=== PATIENT | male | born 1970 | race Caucasian/White ===

== ENCOUNTER 2023-07-12 00:10 | Day surgery (SDC) | payer OTHER, SELFPAY ==
[2023-07-01 13:44] VITALS: BMI 31.2
[2023-07-12 09:15] VITALS: BP 126/83; PULSE 80; RESP 18; TEMP 36.4; O2SAT 98
[2023-07-12] MEDS: LACTATED RINGERS 1,000 ML 150 ML IV CONT (09:24)
--- NOTE | 2023-07-12 09:48 | WPDANESEPPF ---
Anes - Initial Pre Proc Eval Procedure: Operation Date: 07/12/23 10:30 Proposed Procedures p Screening Colonoscopy - Tomas Daily MD Date/Time: 07/12/23 09:48 Surgeon: Tomas Daily MD Pre Op Diagnosis: neoplasm screening Patient Data Age: 53 Gender: M Height: 1.83 m Weight: 113.6 kg Last Vital Signs Temp 97.6 F 07/12/23 09:15 Pulse 80 07/12/23 09:15 Resp 18 07/12/23 09:15 BP 126/83 07/12/23 09:15 Pulse Ox 98 07/12/23 09:15 O2 Del Method Room Air 07/12/23 09:15 Allergies Allergy/AdvReac Type Severity Reaction Status Date / Time No Known Allergies Allergy Verified 07/12/23 09:13 Home Medications Medication Instructions Recorded Confirmed Type atorvastatin 40 mg tablet (Lipitor) 40 mg PO QHS #90 tabs 05/14/23 07/01/23 Rx varenicline 1 mg tablet (Chantix 1 mg PO BID #60 tabs 06/17/23 07/01/23 Rx Continuing Month Box) Patient hx anesthesia problems: none Family hx anesthesia problems: none Results Review: All pre-operative results and documents have been reviewed as part of the pre-operative evaluation. [facility] Past Medical History Medical History Dyslipidemia SAIMA on CPAP Surgical History Surgical History (Updated 05/14/23 @ 16:05 by Nicola Carlin MD) History of left inguinal hernia repair (~1993) History of right inguinal hernia repair (~2011) History of tonsillectomy Family History Family History Grandparent Carcinoma of colon Social History Social History Smoking packs per day: 1 Smoking cigarettes per day: 20.0 Years smoked: 35 Smoking pack-years: 35.00 Smoking status: Former smoker Tobacco type: cigarettes Alcohol intake: current Drinks per week: 8 Substance use: never Substance use type: does not use Do You Feel Safe in your Home?: Yes Lack of Transportation: No Lack of Food: Never True Current Housing: I Have Housing Concerned About Future Housing: No Difficulty Paying Gas/Electric Bills: No Difficulty Paying for Meds: No Currently Unemployed: No Education: Trade/Vocational Certificate Difficulty w/ Childcare or Family Care: No Living arrangements: with family Additional living arrangements comments: Occupation/Education: occupation Gender identity (if verbalized by the patient): Male Sexual Orientation (if Verbalized by the Patient): Straight or Heterosexual Spiritual care concerns: No Agree to blood products: Yes Anes - Eval Final PreProcedure Day of Procedure 07/12/23 09:48 Patient weight: normal Heart: regular rate and rhythm Lungs: clear to auscultation Airway: Mallampati scale class II Neurological: alert and oriented Last oral intake: >/= 8 hours Emergent: no Anesthetic plan: proceed Anesthesia type and monitoring: general GIVS and standard monitoring Results Review: All pre-operative results and documents have been reviewed as part of the pre-operative evaluation. Informed Consent: The patient's anesthetic plan and its attendant risks and benefits were discussed with the patient/family/POA. Questions were solicited and answers provided to the satisfaction of the patient/family/POA.
--- NOTE | 2023-07-12 10:17 | PM.HPGS ---
History of Present Illness History of Present Illness Consent: Risks, benefits, and alternatives have been discussed and questions answered. Patient agrees to proceed with procedure. Chief complaint: neoplasm screening Narrative: Elliot Castanon is a 53 year old male here for first screening colonoscopy Review of Systems Constitutional: Constitutional: Denies headache(s) and Denies weakness Eyes: Eyes: Denies blurry vision ENT: Reports Normal hearing present, Denies headache(s) and Denies neck pain Cardiovascular: Cardiovascular: Denies chest pain and Denies dyspnea Respiratory: Respiratory: Denies dyspnea Gastrointestinal: Gastrointestinal: Reports no additional gastrointestinal complaints Genitourinary: Genitourinary: Denies dysuria Musculoskeletal: Musculoskeletal: Denies neck pain Integumentary/Breasts: Skin/Breast: Denies dry skin Neurologic: Reports Normal hearing present, Denies headache(s) and Denies weakness Psychiatric: Psychiatric: Denies anxiety Endocrine: Endocrine: Denies change in body appearance Hematologic/Lymphatic: Hematologic/Lymphatic: Denies easy bleeding Allergic/Immunologic: Allergic/Immunologic: Denies urticaria [facility] Past Medical History Medical History (Updated 07/12/23 @ 10:17 by Tomas Daily MD) Colon cancer screening Dyslipidemia SAIMA on CPAP Surgical History Surgical History (Updated 05/14/23 @ 16:05 by Nicola Carlin MD) History of left inguinal hernia repair (~1993) History of right inguinal hernia repair (~2011) History of tonsillectomy Family History Family History Grandparent Carcinoma of colon Social History Social History Smoking packs per day: 1 Smoking cigarettes per day: 20.0 Years smoked: 35 Smoking pack-years: 35.00 Smoking status: Former smoker Tobacco type: cigarettes Alcohol intake: current Drinks per week: 8 Substance use: never Substance use type: does not use Do You Feel Safe in your Home?: Yes Lack of Transportation: No Lack of Food: Never True Current Housing: I Have Housing Concerned About Future Housing: No Difficulty Paying Gas/Electric Bills: No Difficulty Paying for Meds: No Currently Unemployed: No Education: Trade/Vocational Certificate Difficulty w/ Childcare or Family Care: No Living arrangements: with family Additional living arrangements comments: Occupation/Education: occupation Gender identity (if verbalized by the patient): Male Sexual Orientation (if Verbalized by the Patient): Straight or Heterosexual Spiritual care concerns: No Agree to blood products: Yes Meds Home Medications and Allergies Home Medications Medication Instructions Recorded Confirmed Type atorvastatin 40 mg tablet (Lipitor) 40 mg PO QHS #90 tabs 05/14/23 07/01/23 Rx varenicline 1 mg tablet (Chantix 1 mg PO BID #60 tabs 06/17/23 07/01/23 Rx Continuing Month Box) Allergies Allergy/AdvReac Type Severity Reaction Status Date / Time No Known Allergies Allergy Verified 07/12/23 09:13 Vital Signs Vital Signs - 24 hr 07/12/23 09:15 Temperature 97.6 F Pulse Rate 80 Respiratory Rate 18 Blood Pressure 126/83 Pulse Oximetry 98 Oxygen Delivery Room Air Exam Const: General: comfortable and no acute distress HENMT: Face/Nose/Sinus: Normal nares present Eyes: General: appearance normal, both eyes and all related structures Neck: Neck: no JVD Resp: Auscultation: clear to auscultation bilaterally Cardio: Rate: regular rate Rhythm: regular rhythm GI: Inspection: non-distended GI Palp: Yes Soft to palpation Skin: General skin exam: normal color Neuro: General: gait normal Speech: normal speech Extrem: General: normal to inspection Psych: Mental Status: mental status grossly normal Assessment and Plan Assessment and p
[2023-07-12 10:35] VITALS: BP 94/58; PULSE 69; RESP 17; O2SAT 97
[2023-07-12 10:45] VITALS: BP 118/80; PULSE 65; RESP 25; O2SAT 99
[2023-07-12 10:55] VITALS: BP 116/79; PULSE 60; RESP 29; O2SAT 100
== END 2023-07-12 11:01 | disposition home or self-care (01) ==
PROVIDERS: PCP Family Medicine; Visit Provider Internal Medicine Gastroenterology
PROC: 0DJD8ZZ Inspection of Lower Intestinal Tract, Via Natural or Artificial Opening Endoscopic (ICD-10-PCS; CPT 45378; principal; 2023-07-12 10:30)
DX: Z12.11 Encounter for screening for malignant neoplasm of colon (principal); K63.5 Polyp of colon; E78.5 Hyperlipidemia, unspecified; G47.33 Obstructive sleep apnea (adult) (pediatric); Z87.891 Personal history of nicotine dependence
CPT/HCPCS: 45385; 88305; J2704; J7120

== ENCOUNTER 2023-08-22 08:38 | Outpatient (CLI) | payer OTHER, SELFPAY ==
[2023-08-22 14:06] LABS: Alanine Aminotransferase 63 U/L (6-50); Albumin Level 4.6 g/dL (3.5-5.1); Alkaline Phosphatase 62 U/L (38-126); Anion Gap 8 mmol/L (4-12); Aspartate Amino Transferase 82 U/L (17-59); Bilirubin,Total 0.7 mg/dL (0.2-1.3); Blood Urea Nitrogen 13 mg/dL (9-20); Calcium 9.7 mg/dL (8.4-10.2); Carbon Dioxide 26 mmol/L (22-30); Chloride 105 mmol/L (98-107); Cholesterol 164 mg/dL (0-200); Estimated Glomerular Filt Rate > 60; Glucose 105 mg/dL (65-110); HDL Direct 40 mg/dL; Potassium 4.2 mmol/L (3.4-5.0); Sodium 139 mmol/L (137-145); Triglycerides 105 mg/dL (<150)
[2023-08-22 14:17] LABS: LDL Cholesterol Direct 101 mg/dL
[2023-08-22 18:19] LABS: Hemoglobin A1C 5.7 % (<5.7)
== END 2023-08-22 08:39 | disposition home or self-care (01) ==
LOC: ANHGOSHLAB 08:40
PROVIDERS: PCP Family Medicine; Visit Provider Family Medicine
DX: E78.5 Hyperlipidemia, unspecified (principal); I10 Essential (primary) hypertension; R20.0 Anesthesia of skin; R20.2 Paresthesia of skin; Z79.899 Other long term (current) drug therapy; R73.9 Hyperglycemia, unspecified
CPT/HCPCS: 36415; 80053; 80061; 83036

== ENCOUNTER 2024-04-17 14:50 | Emergency (ER) | payer OTHER, SELFPAY ==
[2024-04-17 15:04] VITALS: BP 120/87; PULSE 83; RESP 16; TEMP 36.5; O2SAT 99
--- NOTE | 2024-04-17 15:16 | ED.URI ---
HPI - URI/Sore Throat General Chief Complaint: Upper Respiratory Infection Stated Complaint: REYES,congestion Time Seen by Provider: 04/17/24 15:16 Source: patient, RN notes reviewed and old records reviewed Mode of arrival: ambulatory Limitations: no limitations History of Present Illness HPI Narrative: 54-year-old male presents to the [facility] with complaints sinus congestion for 2-3 days. States that he took 1 dose of sinus medication this morning. Denies fevers. Related Data Home Medications ?Medication ?Instructions ?Recorded ?Confirmed ?Last Taken ?Type levothyroxine 25 mcg tablet 25 mcg PO DAILY 03/10/24 04/17/24 Unknown History Allergies Allergy/AdvReac Type Severity Reaction Status Date / Time No Known Allergies Allergy Verified 04/17/24 17:39 Review of Systems Review of Systems: All systems reviewed & are unremarkable except as noted in HPI and below Constitutional: Constitutional: Reports no additional constitutional complaints ENT: Reports as per HPI Cardiovascular: Cardiovascular: Reports no additional cardiovascular complaints, Denies chest pain and Denies dyspnea Respiratory: Respiratory: Reports no additional respiratory complaints, Denies chest congestion, Denies cough and Denies dyspnea Gastrointestinal: Gastrointestinal: Reports no additional gastrointestinal complaints, Denies abdominal pain, Denies nausea and Denies vomiting Musculoskeletal: Musculoskeletal: Reports no additional musculoskeletal complaints Integumentary/Breasts: Skin/Breast: Reports system reviewed and no additional complaints, except as docu PMFSH Past Medical History Medical History Hypothyroidism SAIMA on CPAP Dyslipidemia Surgical History Surgical History History of tonsillectomy History of left inguinal hernia repair (~1993) History of right inguinal hernia repair (~2011) Family History Family History Grandparent Carcinoma of colon Social History Social History Smoking packs per day: 1 Smoking cigarettes per day: 20.0 Years smoked: 35 Smoking pack-years: 35.00 Smoking status: Former smoker (> 30 pack years quit 05/29) Tobacco type: cigarettes Smoking end date: 05/06/23 Alcohol intake: current Drinks per week: 8 Substance use: never Substance use type: does not use Do You Feel Safe in your Home?: Yes Lack of Transportation: No Lack of Food: Never True Current Housing: I Have Housing Concerned About Future Housing: No Difficulty Paying Gas/Electric Bills: No Difficulty Paying for Meds: No Currently Unemployed: No Education: Trade/Vocational Certificate Difficulty w/ Childcare or Family Care: No Living arrangements: with family Additional living arrangements comments: Occupation/Education: occupation Gender identity (if verbalized by the patient): Male Sexual Orientation (if Verbalized by the Patient): Straight or Heterosexual Spiritual care concerns: No Agree to blood products: Yes Comments At the time of my signature, I reviewed and agree with the nursing past medical, surgical, social, and family history. There is no relevant family history pertinent to the patient complaint. Exam Const: General: cooperative, healthy appearing, comfortable, no acute distress, well developed, alert and well nourished Nutritional Appearance: well nourished Orientation/consciousness: patient oriented x3 Limitations: no limitations HENMT: Head: normal to inspection Ears: hearing grossly normal bilaterally, external ears normal, TM's normal bilaterally, EAC's normal, mastoids normal and no periauricular adenopathy Face/Nose/Sinus: Normal external nose present, Normal nasal mucous membranes and turbinates present, normal facial exam and face symmetric Face and sinus: normal facial exam and face symmetric Mouth: Yes Normal oral and palatal mucosa present, Yes lip normal and Yes tongue normal Throat: posterior oropharynx normal, tonsils normal, uvula midline and no uvular edema Eyes: General: appearance normal, both eyes and all related structures Alignment and Position: alignment normal Periorbital: periorbital findings normal Neck: Neck: normal visual inspection, full ROM, no lymphadenopathy and no meningeal signs Chest: Chest palpation & inspection: normal inspection of the chest Resp: Effort & Inspection: normal respiratory effort and able to speak in complete sentences Auscultation: clear to auscultation bilaterally, no crackles, no rales, no rhonchi and no wheezes Cardio: Rate: regular rate Skin: General skin exam: normal color and no rashes or lesions noted Lesions: no lesions Rashes: no rashes Wounds: no wounds Neuro: General: patient oriented x3, gait normal, tone normal, moves all extremities and no meningeal signs Cognition (Neuro): normal cognition Speech: normal speech Gait exam (Neuro): Normal gait present Extrem: General: normal to inspection, full ROM, capillary refill normal and normal gait Psych: Appearance: grossly normal and well kempt Mental Status: mental status grossly normal Speech and movement: Normal speech and movement present and Clear speech present Affect: normal affect Attitude: cooperative Course Course Level of Care: Express Care Visit Vital Signs Vital signs: Vital Signs Temperature 97.7 F 04/17/24 15:04 Pulse Rate 83 04/17/24 15:04 Respiratory Rate 16 04/17/24 15:04 Blood Pressure 120/87 04/17/24 15:04 Pulse Oximetry 99 04/17/24 15:04 Oxygen Delivery Room Air 04/17/24 15:04 Temperature 97.7 F 04/17/24 15:04 Pulse Rate 83 04/17/24 15:04 Respiratory Rate 16 04/17/24 15:04 Blood Pressure 120/87 04/17/24 15:04 Pulse Oximetry 99 04/17/24 15:04 Oxygen Delivery Room Air 04/17/24 15:04 Reviewed MDM - URI/Sore Throat MDM Narrative Medical decision making narrative: Patient sitting comfortably in exam room. Nontoxic, vitals stable. Patient in no acute distress. Exam consistent with viral sinusitis. Flu, COVID and strep were offered, patient declined Patient appropriate for outpatient treatment and follow-up Discharge instructions reviewed with patient, as well as provided in writing per nursing staff. The instructions also include specific and strict return/GO TO THE ER as well as f/u information. All questions have been answered, and the patient deny any further questions with discharge and discharge plan. Some parts of this dictation were generated by voice recognition software and may contain typographical and/or grammatical inaccuracies. Differential Diagnosis Differential diagnosis: Likely upper respiratory infection, otitis media, sinusitis, viral infection, bronchitis and pharyngitis Critical Care Time Critical Care Time Critical Care Time: No Discharge Plan Discharge Clinical Impression: Post-nasal drainage Upper respiratory infection Qualifiers: URI type: unspecified viral URI Qualified Code(s): J06.9 - Acute upper respiratory infection, unspecified Sinusitis Qualifiers: Sinusitis location: unspecified location Chronicity: acute Recurrence: not specified as recurrent Qualified Code(s): J01.90 - Acute sinusitis, unspecified Patient Disposition: Home, Self-Care Condition: Stable Instructions: Antibiotic Form, Sinusitis (ED), Postnasal Drip (DC) Additional Instructions: Your symptoms are likely due to a viral illness, which is not treated with antibiotics. Typically viral infections last 7-10 days, can linger for couple of weeks. It is very important to treat your symptoms. Drink plenty of water, Gatorade, Pedialyte, ice pops or Jell-O. -Alternate Tylenol and Motrin per package directions for fever or pain. You can alternate every 4 hours -Antihistamine medication such as Benadryl at night and Zyrtec/Claritin/Kaylynn during the day can help improve symptoms. -doing daily nasal irrigations can help relieve pressure your sinuses. Things like a Neti pot -Use Flonase twice a day for 5 days then daily to help reduce the inflammation and dry up your sinuses. -You can also use Mucinex. Be sure to drink plenty of water with this medication at least 8 ounces with every dose and it is important to drink 8 to 10 glasses of water per day. Water is a natural decongestant -Eat and drink things that are easy to swallow, like tea or soup, or popsicles. -Oral rinses such as: Salt water gargles and/or may use topical anesthetic (eg. Chloraseptic spray) or lozenges to relieve dryness or throat pain). -Frequent hand washing or hand zinc plate cutter is one of the best ways to prevent spread of infection. -Using a vaporizer or humidifier at night will also help thin secretions and help with coughing up phlegm. -Follow up with primary care provider in 7-10 days if condition is not improving - For new or worsening symptoms go directly to the nearest ER Patient Language: Lebanese Prescriptions: No Action levothyroxine 25 mcg tablet 25 mcg PO DAILY atorvastatin [Lipitor] 40 mg tablet 40 mg PO QHS Qty: 90 1RF Follow-up/Referrals: Nicola Carlin MD [Primary Care Provider] - 2 Weeks ([facility]) Stand Alone Forms: Work/School Release IP Time of Disposition: 15:25
== END 2024-04-17 15:30 | disposition home or self-care (01) ==
PROVIDERS: Emergency Provider Nurse Practitioner; PCP Family Medicine
DX: R09.82 Postnasal drip (principal); J06.9 Acute upper respiratory infection, unspecified; J01.90 Acute sinusitis, unspecified; Z87.891 Personal history of nicotine dependence; E03.9 Hypothyroidism, unspecified; E78.5 Hyperlipidemia, unspecified; G47.33 Obstructive sleep apnea (adult) (pediatric)
CPT/HCPCS: 99211; G0463

== ENCOUNTER 2024-06-19 09:09 | Outpatient (CLI) | payer OTHER, SELFPAY ==
--- NOTE | ~2024-06-19 | XR_ITS ---
EXAMINATION: XR chest 2V 06/19/2024 09:22 INDICATION: Hemoptysis PROCEDURE: 2 view chest COMPARISON: 03/21/2018 FINDINGS: The lungs are clear. The cardiomediastinal silhouette is within normal limits. There are no pleural effusions. There is no pneumothorax suspected. IMPRESSION: 1: NO ACUTE CARDIOPULMONARY DISEASE. Reviewed, dictated and finalized at location B. INSPECTOR
== END 2024-06-19 09:10 | disposition home or self-care (01) ==
LOC: GOSHIMG 09:09
PROVIDERS: PCP Family Medicine; Visit Provider Student in an Organized Health Care Education/Training Program
DX: R04.2 Hemoptysis (principal); R05.9 Cough, unspecified
CPT/HCPCS: 71046